=== PATIENT | female | born 1985 | race African-American/Black ===

== ENCOUNTER 2017-01-20 21:47 | Emergency (ER) | payer BC ==
[2017-01-20 22:13] VITALS: BP 109/73; PULSE 80; TEMP 98; BMI 44.5
[2017-01-20] MEDS ORDERED: SODIUM CHLORIDE 1,000 ML IV STA (22:44)
--- NOTE | 2017-01-20 22:44 | PDOC ---
History of Present Illness - General History Source: Patient Exam Limitations: No Limitations - History of Present Illness Initial Comments: CHIEF COMPLAINT: 31 y/o afebrile, [id number], approximately 8 week female with LMP of 11/22/16 c/o abdominal pain, vomiting and diarrhea x 3 days. HISTORY OF PRESENT ILLNESS: The patient states that on Saturday, she ate marco [employer]inez early in the day and it "looked funny". She states a few hours later she started having abdominal pain, nausea, vomiting and diarrhea, all of which have continued. She has been drinking liquids to try to stay hydrated. She does admit [place]17 but that was 5 days before symptoms began. She states the abdominal pain started in her upper abdomen and is now in her lower abdomen and is coming at consistent timed intervals. She denies vaginal bleeding, abnormal vaginal discharge, hematuria, dysuria. She has not had an [employer] appointment yet, but is scheduled for her first on . Vital signs on arrival are within normal limits. REVIEW OF SYSTEMS: GENERAL/CONSTITUTIONAL: Subjective fever/chills. No weakness. No weight change. HEAD, EYES, EARS, NOSE AND THROAT: No change in vision. No ear pain or discharge. No sore throat. CARDIOVASCULAR: No chest pain or shortness of breath. RESPIRATORY: No cough, wheezing, or hemoptysis. GASTROINTESTINAL: +abdominal pain, nausea, vomiting, watery diarrhea. GENITOURINARY: No dysuria, frequency, or change in urination. MUSCULOSKELETAL: No joint or muscle swelling or pain. No neck or back pain. SKIN: No rash or easy bruising. NEUROLOGIC: No headache, vertigo, loss of consciousness, or loss of sensation. PHYSICAL EXAM: GENERAL: The patient is awake, alert, and fully oriented, in no acute distress. she is morbidly obese, ambulatory, in NAD or obvious discomfort. HEAD: Normal with no signs of trauma. ENT: Pupils equal, round and reactive to light, extraocular movements intact, sclera anicteric, conjunctiva clear. Neck supple. Mucous membranes moist. LUNGS: Clear to auscultation bilaterally. Normal excursion. No respiratory distress or use of accessory muscles. CV: RRR, S1/S2, no MRG. Cap refill < 2 sec. ABDOMEN: Soft, obese, TTP of epigastric, suprapubic and LLQ. No rebound, guarding or rigidity. Hyperactive bowel sounds across all [place]. EXTREMITIES: Normal range of motion, no edema. NEUROLOGICAL: Normal speech, normal gait. CN II-XII grossly intact. PSYCH: Normal mood, normal affect. SKIN: Warm, dry, normal turgor, no rashes or lesions noted. <Esperanza Collins - Last Filed: 01/21/17 02:29> <Jaylyn Mathias - Last Filed: 01/21/17 05:28> - General Chief Complaint: Vomiting/Diarrhea Stated Complaint: Vomiting/Diarrhea/ABD PAIN Time Seen by Provider: 01/20/17 22:34 Past History - Past Medical History Other medical history: Migraines - Psycho/Social/Smoking Cessation Hx Anxiety: No Suicidal Ideation: No Smoking History: Never smoked Information on smoking cessation initiated: No Hx Alcohol Use: No Drug/Substance Use Hx: No Substance Use Type: None <Esperanza Collins - Last Filed: 01/21/17 02:29> <Jaylyn Mathias - Last Filed: 01/21/17 05:28> - Past Medical History Allergies/Adverse Reactions: Allergies Allergy/AdvReac Type Severity Reaction Status Date / Time No Known Allergies Allergy Verified 01/20/17 22:08 Home Medications: Ambulatory Orders Ondansetron [Zofran Odt -] 4 mg SL TID #6 od.tablet 01/21/17 *Physical Exam - Vital Signs Last Vital Signs Temp Pulse Resp BP Pulse Ox 98.0 F 80 20 109/73 100 01/20/17 22:09 01/20/17 22:09 01/20/17 22:09 01/20/17 22:09 01/20/17 22:09 <Esperanza Collins - Last Filed: 01/21/17 02:29> - Vital Signs Last Vital Signs Temp Pulse Resp BP Pulse Ox 98.0 F 80 20 109/73 100 01/20/17 22:09 01/20/17 22:09 01/20/17 22:09 01/20/17 22:09 01/20/17 22:09 <Jaylyn Mathias - Last Filed: 01/21/17 05:28> ED Treatment Course - LABORATORY CBC & Chemistry Diagram: 01/20/17 22:51 01/20/17 22:51 <Esperanza Collins - Last Filed: 01/21/17 02:29> - LABORATORY CBC & Chemistry Diagram: 01/20/17 22:51 01/20/17 22:51 - ADDITIONAL ORDERS Additional order review: Laboratory Results 01/20/17 01/20/17 01/20/17 22:55 22:51 22:51 Sodium Potassium Chloride Carbon Dioxide Anion Gap BUN Creatinine Creat Clearance w eGFR Random Glucose Calcium Magnesium 2.4 Total Bilirubin AST ALT Alkaline Phosphatase Total Protein Albumin Lipase Beta HCG, Quant 96398.9 Urine Color Yellow Urine Appearance Clear Urine pH 6.0 Urine Protein Negative Urine Glucose (UA) Negative Urine Ketones Trace H Urine Blood Trace-inta Urine Nitrite Negative Urine Bilirubin 1+ H Urine Urobilinogen 1.0 Ur Leukocyte Esterase Negative Blood Type Antibody Screen 01/20/17 01/20/17 22:51 22:51 Sodium 138 Potassium 4.1 Chloride 101 Carbon Dioxide 26 Anion Gap 11 BUN 9 Creatinine 0.5 L Creat Clearance w eGFR > 60 Random Glucose 90 Calcium 8.5 Magnesium Total Bilirubin 0.3 AST 22 ALT 36 Alkaline Phosphatase 83 Total Protein 7.3 Albumin 3.4 Lipase 192 Beta HCG, Quant Urine Color Urine Appearance Urine pH Urine Protein Urine Glucose (UA) Urine Ketones Urine Blood Urine Nitrite Urine Bilirubin Urine Urobilinogen Ur Leukocyte Esterase Blood Type O POSITIVE Antibody Screen Negative 01/20/17 22:51 RBC 4.45 MCV 87.3 MCHC 33.4 RDW 14.1 MPV 8.0 Neutrophils % 69.7 Lymphocytes % 18.0 Monocytes % 10.7 H Eosinophils % 1.1 Basophils % 0.5 - Medications Given in the ED: ED Medications Discontinued Medications Generic Name Dose Route Start Last Admin Trade Name Freq PRN Reason Stop Dose Admin Sodium Chloride 1,000 mls @ 1,000 mls/hr 01/20/17 22:44 01/20/17 23:03 Normal Saline - IV 01/20/17 23:43 1,000 mls/hr ASDIR STA Administration <Jaylyn Mathias - Last Filed: 01/21/17 05:28> Medical Decision Making - Medical Decision Making A/P: 31 y/o female, approximately 8 weeks , c/o abdominal pain, nausea , vomiting, and diarrhea x 3 days. Low suspicion for appendicitis as patient has no RLQ pain. Plan is as follows: 1. labs 2. UA/culture 3. Beta 4. Transvaginal ultrasound 5. IV fluids Labs unremarkable UA negative for UTI Beta hcg - 35,456 Transvaginal Ultrasound IMPRESSION: Single live intrauterine gestation of approximately 8 weeks 6 days. heart rate is 112 bpm. Discussed all results with Dr. Mathias who is in agreement with discharge to home and f/u with [employer]. Explained all of the results to the patient. She is denying nausea currently. Will send out Rx for zofran. Explained to the patient that she needs to stay hydrated and she does admit she can keep liquids down. Instructed her to also keep her follow up appointment with Dr. Klein scheduled for , 01/24/17. Instructed her to return to the ER immediately with any worsening or concerning symptoms, especially intractable vomiting, vaginal bleeding or worsening abdominal pain. Suggested she f/u with her PCP tomorrow as well. The patient verbalizes understanding of all instructions, has no further questions and is awaiting discharge. <Esperanza Collins - Last Filed: 01/21/17 02:29> *DC/Admit/Observation/Transfer <Esperanza Collins - Last Filed: 01/21/17 02:29> - Attestations Physician Attestion: I reviewed the case with the mid-level practitioner and agree with the mid- level practitioner's assessment, diagnosis and disposition. <Jaylyn Mathias - Last Filed: 01/21/17 05:28> Diagnosis at time of Disposition: Gastroenteritis and colitis, viral - Discharge Dispostion Disposition: HOME Condition at time of disposition: Good - Prescriptions Prescriptions: Ondansetron [Zofran Odt -] 4 mg SL TID #6 od.tablet - Referrals Referrals: Wayne Selby MD [Staff Physician] - (Keep appointment scheduled for 01/24/17) Shaw Andre [Primary Care Provider] - Call tomorrow - Patient Instructions Printed Discharge Instructions: DI for Viral Gastroenteritis -- Adult, Gastroenteritis Diet Additional Instructions: Discharge Instructions: -Call your regular doctor in the morning to schedule follow up appointment -Keep your appointment with Dr. Selby scheduled for 01/24/17 -Drink plenty of fluids and follow diet suggestions -A prescription has been sent to your pharmacy for anti nausea medication -You can take Tylenol for pain if needed -Return to the ER immediately with any worsening or concerning symptoms, such as vomiting that doesn't stop, inability to keep liquids down, vaginal bleeding or any other concerning symptoms - Post Discharge Activity Work/School Note: Back to Work
[2017-01-20 22:56] LABS: BASOPHIL 0.5 % (0-2.0); EOSINOPHIL 1.1 % (0-4.5); MCH 29.1 pg (25.7-33.7); MCHC 33.4 g/dl (32.0-36.0); MEAN CELL VOLUME 87.3 fl (80-96); NEUTROPHILS 69.7 % (42.8-82.8); PLATELET COUNT 280 K/MM3 (134-434); RDW 14.1 % (11.6-15.6); WHITE BLOOD COUNT 8.6 K/mm3 (4.0-10.0)
[2017-01-20 23:04] LABS: URINE APPEARANCE CLEAR; URINE BILIRUBIN 1+ (NEGATIVE); URINE BLOOD TRACE-INTA (NEGATIVE); URINE COLOR YELLOW; URINE GLUCOSE (UA) NEGATIVE (NEGATIVE); URINE KETONE TRACE (NEGATIVE); URINE LEUK ESTERASE NEGATIVE (NEGATIVE); URINE NITRITE NEGATIVE (NEGATIVE); URINE PROTEIN NEGATIVE (NEGATIVE)
[2017-01-20 23:21] LABS: ALBUMIN 3.4 g/dl (3.4-5.0); ANION GAP 11 (8-16); BILIRUBIN,TOTAL 0.3 mg/dL (0.2-1.0); CALCIUM 8.5 mg/dL (8.5-10.1); CO2 26 mmol/L (21-32); CREATININE 0.5 mg/dL (0.55-1.02); GLUCOSE,RANDOM 90 mg/dL (74-106); SGOT/AST 22 U/L (15-37); SGPT/ALT 36 U/L (12-78); TOT PROT 7.3 g/dl (6.4-8.2)
[2017-01-20 23:22] LABS: ALK PHOS 83 U/L (45-117)
== END 2017-01-21 03:03 | disposition home or self-care (01) ==
LOC: JER 21:47
PROC: 3E0337Z Introduction of Electrolytic and Water Balance Substance into Peripheral Vein, Percutaneous Approach (ICD-10-PCS; principal; 2017-01-20)
DX: O26.891 Other specified pregnancy related conditions, first trimester (principal); K52.9 Noninfective gastroenteritis and colitis, unspecified; B97.89 Other viral agents as the cause of diseases classified elsewhere; Z3A.01 Less than 8 weeks gestation of pregnancy
CPT/HCPCS: 36415; 76817-TC; 80053; 81003; 83690; 83735; 84702; 85025; 86850; 86900; 86901; 87086; 99283-25

== ENCOUNTER 2020-06-22 07:45 | Day surgery (SDC) | payer OTHER ==
[2020-06-01 16:16] VITALS: BMI 49.2
[2020-06-22 08:11] VITALS: TEMP 98.5
[2020-06-22] MEDS ORDERED: PROPOFOL 20 ML ONE ×3 (09:22→09:23)
[2020-06-22] MEDS ORDERED: LIDOCAINE HCL/PF 2% SDV 5ML VIAL ONE (09:22)
[2020-06-22] MEDS ORDERED: MIDAZOLAM HCL 2 MG/2 ML SINGLE DOSE VIAL ONE (09:22)
[2020-06-22] MEDS ORDERED: BUPIVACAINE HCL/PF 0.25% (2.5MG/ML) 10 ML VIAL ONE (09:32)
[2020-06-22] MEDS ORDERED: DEXAMETHASONE SOD PHOSPHATE 4 MG/1 ML VIAL ONE (09:48)
[2020-06-22] MEDS ORDERED: KETOROLAC TROMETHAMINE 30 MG/1 ML VIAL ONE (10:06)
[2020-06-22] MEDS ORDERED: GUM MASTIC/STORAX/MSAL/ALCOHOL 1 DRP DROPSBTL MC ONE (10:08)
[2020-06-22] MEDS ORDERED: ACETAMINOPHEN 500 MG TABLET (FP) PO PRN (10:27)
[2020-06-22] MEDS ORDERED: oxyCODONE HCL 5 MG TABLET PO PRN (10:27)
[2020-06-22] MEDS ORDERED: ONDANSETRON 4 MG/2 ML VIAL IVPUSH PRN (10:27)
[2020-06-22] MEDS ORDERED: LACTATED RINGERS SOLUTION 1,000 ML IV SCH (10:30)
[2020-06-22] MEDS ORDERED: oxyCODONE HCL 5 MG TABLET ONE (11:25)
[2020-06-22 12:09] VITALS: BP 112/61; PULSE 62
== END 2020-06-22 12:30 | disposition home or self-care (01) ==
LOC: FASU 07:45
PROVIDERS: ATTEND Orthopaedic Surgery Hand Surgery
PROC: 01N54ZZ Release Median Nerve, Percutaneous Endoscopic Approach (ICD-10-PCS; principal; 2020-06-22 09:58)
DX: G56.01 Carpal tunnel syndrome, right upper limb (principal)
CPT/HCPCS: 84703; 94760

== ENCOUNTER 2020-10-25 18:47 | Emergency (ER) | payer OTHER ==
[2020-10-25 18:54] VITALS: BP 122/80; PULSE 97; TEMP 99.2; BMI 50.8
[2020-10-25] MEDS ORDERED: IBUPROFEN 400 MG TABLET (FP) PO ONE ×2 (19:45→19:48)
== END 2020-10-25 22:34 | disposition home or self-care (01) ==
LOC: FER 18:47
DX: E03.9 Hypothyroidism, unspecified (principal)
CPT/HCPCS: 36415; 84439; 84443; 86376; 99283-25